=== PATIENT | male | born 1990 | race Caucasian/White ===

== ENCOUNTER 2017-05-04 10:22 | Emergency (ER) | payer BC, OTHER ==
[~2017-05-04] VITALS: Ht 172.7 cm; Wt 113.7 kg
[~2017-05-04 10:22] MED LIST: LPT20 PO; PROP40TA5 PO; SUMA25TA12 PO
[2017-05-04 10:27] VITALS: TEMP 36.9; Ht 172.7 cm; Wt 113.7 kg
[2017-05-04] MEDS ORDERED: SODIUM CHLORIDE 0.9% 1000ML 1,000 ML IV STA (10:47)
--- NOTE | 2017-05-04 10:50 | EMERGENCY ROOM VISIT NOTE ---
History Report prepared by Bruce: Ramya Hill Under the Supervision of: Dr. Marco Hopson M.D. First contact with patient: 10:37 Chief Complaint: ABDOMINAL PAIN Stated Complaint: LOWER RIGHT ABDOMINAL PAIN,BACK PAIN Nursing Triage Summary: Pt reports RLQ pain around to back for 3 days, nausea. Hx of acute kidney failure a couple days ago. Denies urinary sx other than urine looks "slightly dark". States pain is worse with walking or bending over. History of Present Illness The patient is a 26 year old male who presents to the Emergency Room with complaints of persistent RLQ abdominal pain for the past 3 days. He rates his pain as a 7/10 in severity and notes it radiates into his back. Movement and walking worsen his discomfort. He has been nauseous but has not vomited. He denies any dysuria, hematuria or testicular pain. The patient has a history of acute renal failure and states his urine did look "slightly dark" today. He was able to eat breakfast this morning, stating he had eggs, but eating did not exacerbate his symptoms. The patient still has both his appendix and gallbladder. He has a minor cough but denies any recent fevers. 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 A total of ten systems were reviewed and were otherwise negative. Past Medical & Surgical Medical Problems: (1) Acute febrile illness (2) ARF (acute renal failure) (3) Headache (4) Migraines (5) Sore throat Family History Diabetes mellitus FATHER Heart disease FATHER Hypertension Social History Smoking Status: Never Smoker Alcohol Use: none Drug Use: none Marital Status: Housing Status: lives with family Occupation Status: employed Current/Historical Medications Scheduled Atorvastatin (Lipitor), 20 MG PO DAILY Propranolol Hcl (Propranolol Hcl), 40 MG PO BID Scheduled PRN Sumatriptan Succinate (Imitrex), 25 MG PO DIRECTED PRN for Headache Allergies Coded Allergies: NSAIDs (Verified Adverse Reaction, Intermediate, HISTORY OF RENAL FAILURE , 05/04/17) Physical Exam Vital Signs Date Time Temp Pulse Resp B/P (MAP) Pulse Ox O2 Delivery O2 Flow Rate FiO2 05/04/17 12:55 89 18 133/79 97 05/04/17 12:13 95 16 148/79 96 Room Air 05/04/17 11:14 86 05/04/17 10:27 36.9 72 17 155/101 96 Room Air Physical Exam GENERAL: Awake, alert, well-appearing, in no distress HENT: Normocephalic, atraumatic. Oropharynx unremarkable. Dry mucous membranes. EYES: Normal conjunctiva. Sclera non-icteric. NECK: Supple. No nuchal rigidity. FROM. No JVD. RESPIRATORY: Clear to auscultation. CARDIAC: Regular rate, normal rhythm. Extremities warm and well perfused. Pulses equal. ABDOMEN: Soft, mild RLQ tenderness over McBurney's point, no peritoneal signs, negative Guy's sign, negative psoas, negative Rovsing's sign. No rebound or guarding. No masses. RECTAL: Deferred. MUSCULOSKELETAL: Chest examination reveals no tenderness. The back is symmetrical on inspection without obvious abnormality. There is no CVA tenderness to palpation. No joint edema. LOWER EXTREMITIES: Calves are equal size bilaterally and non-tender. No edema. No discoloration. NEURO: Normal sensorium. No sensory or motor deficits noted. SKIN: No rash or jaundice noted. Medical Decision & Procedures ER Provider Diagnostic Interpretation: Radiology results as stated below per my review and radiologist interpretation: CT OF THE ABDOMEN AND PELVIS WITH CONTRAST CLINICAL HISTORY: Right lower quadrant abdominal pain. COMPARISON STUDY: CT of the abdomen and pelvis May 12, 2015 and renal ultrasound May 14, 2015. TECHNIQUE: Following IV administration of 93 mL of Optiray-320, axial images of the abdomen and pelvis were obtained from the lung bases to the proximal femurs. Images were reviewed in the axial, sagittal, and coronal planes. IV contrast was administered without complication. A dose lowering technique was utilized adhering to the principles of ALARA. CT DOSE: 1118.54 mGy.cm FINDINGS: A 1.4 cm cyst within the upper pole the right kidney is noted. There is fatty infiltration of the liver. The spleen, adrenal glands, left kidney and pancreas are normal. There is no hydronephrosis or hydroureter. Caliber and wall thickness of small and large bowel are normal. The appendix is normal. No abdominal or pelvic lymphadenopathy is present. Note is made of a 2.4 cm tubular fat attenuation structure located along anterior aspect of the mid descending colon. There is minimal adjacent infiltration. There is no abscess. There is no free air. No suspicious osseous lesions are present. No peripancreatic or pericholecystic infiltration is present. IMPRESSION: 1. Normal appendix. 2. Findings consistent with epiploic appendagitis of the ascending colon. 3. No bowel obstruction. 4. Fatty liver. Electronically signed by: Guillermo Wilder M.D. 05/04/2017 12:21 PM Laboratory Results 05/04/17 10:40 Red Blood Count 5.32, Mean Corpuscular Volume 92.3, Mean Corpuscular Hemoglobin 31.8, Mean Corpuscular Hemoglobin Concent 34.4, Mean Platelet Volume 10.6, Neutrophils (%) (Auto) 67.2, Lymphocytes (%) (Auto) 24.8, Monocytes (%) (Auto) 6.5, Eosinophils (%) (Auto) 1.1, Basophils (%) (Auto) 0.3, Neutrophils # (Auto) 6.58, Lymphocytes # (Auto) 2.43, Monocytes # (Auto) 0.64, Eosinophils # (Auto) 0.11, Basophils # (Auto) 0.03 05/04/17 10:40 Test 05/04/17 10:30 05/04/17 10:40 Urine Color YELLOW Urine Appearance CLEAR (CLEAR) Urine pH 6.5 (4.5-7.5) Urine Specific [place] 1.021 (1.000-1.030) Urine Protein NEG (NEG) Urine Glucose (UA) NEG (NEG) Urine Ketones NEG (NEG) Urine Occult Blood NEG (NEG) Urine Nitrite NEG (NEG) Urine Bilirubin NEG (NEG) Urine Urobilinogen NEG (NEG) Urine Leukocyte Esterase NEG (NEG) White Blood Count 9.80 K/uL (4.8-10.8) Red Blood Count 5.32 M/uL (4.7-6.1) Hemoglobin 16.9 g/dL (14.0-18.0) Hematocrit 49.1 % (42-52) Mean Corpuscular Volume 92.3 fL (80-100) Mean Corpuscular Hemoglobin 31.8 pg (25-34) Mean Corpuscular Hemoglobin Concent 34.4 g/dl (32-36) Platelet Count 313 K/uL (130-400) Mean Platelet Volume 10.6 fL (7.4-10.4) Neutrophils (%) (Auto) 67.2 % Lymphocytes (%) (Auto) 24.8 % Monocytes (%) (Auto) 6.5 % Eosinophils (%) (Auto) 1.1 % Basophils (%) (Auto) 0.3 % Neutrophils # (Auto) 6.58 K/uL (1.4-6.5) Lymphocytes # (Auto) 2.43 K/uL (1.2-3.4) Monocytes # (Auto) 0.64 K/uL (0.11-0.59) Eosinophils # (Auto) 0.11 K/uL (0-0.5) Basophils # (Auto) 0.03 K/uL (0-0.2) RDW Standard Deviation 43.3 fL (36.4-46.3) RDW Coefficient of Variation 12.8 % (11.5-14.5) Immature Granulocyte % (Auto) 0.1 % Immature Granulocyte # (Auto) 0.01 K/uL (0.00-0.02) Anion Gap 8.0 mmol/L (3-11) Est Creatinine Clear Calc Drug Dose 98.4 ml/min Estimated GFR () 80.6 Estimated GFR (Non- 69.6 BUN/Creatinine Ratio 15.4 (10-20) Calcium Level 9.7 mg/dl (8.5-10.1) Total Bilirubin 0.4 mg/dl (0.2-1) Direct Bilirubin 0.1 mg/dl (0-0.2) Aspartate Amino Transf (AST/SGOT) 31 U/L (15-37) Alanine Aminotransferase (ALT/SGPT) 72 U/L (12-78) Alkaline Phosphatase 107 U/L (45-117) Total Protein 8.6 gm/dl (6.4-8.2) Albumin 4.0 gm/dl (3.4-5.0) Lipase 253 U/L (73-393) Laboratory results reviewed by me Medications Administered Medications (Trade) Dose Ordered Sig/Ki Route Start Time Stop Time Status Last Admin Dose Admin Sodium Chloride 1,000 ml @ 999 mls/hr Q1H1M STAT IV 05/04/17 10:47 05/04/17 11:47 DC 05/04/17 11:00 999 MLS/HR ED Course 1045: The patient was evaluated in room B12. A complete history and physical exam was performed. 1315: I reevaluated the patient. He is feeling well and resting comfortably. I discussed his results and discharge instructions and he verbalized complete understanding and agreement. Medical Decision I reviewed the patient's past medical history, medications, and the nursing notes as described above. The patient's presentation and history were concerning for appendicitis, diverticulitis, PUD, biliary pathology, UTI, pancreatitis, obstruction, mesenteric ischemia, aortic pathology, infections, inflammatory bowel disease, renal colic, as well as others were entertained. The patient is a 26 yo gentleman who presents to the emergency department with RLQ pain x 3 days per HPI. On arrival the patient is relatively-well appearing in NAD, AFVSS. Mild ttp RLQ, no peritoneal signs. Labs unremarkable including WBC wnl. Cr. 1.[address] UA negative. CT abd/pel with normal appendix. Does have epiploic appendagitis of the ascending colon. Plan for NSAIDS and PCP f/u. Findings and plan for follow-up reviewed with patient. Patient agreeable and d/c'd per discharge instructions. Medication Reconcilliation Current Medication List: was personally reviewed by me Blood Pressure Screening Patient's blood pressure: Elevated blood pressure Blood pressure disposition: Elevated BP felt to be situational Impression Primary Impression: Right lower quadrant abdominal pain Additional Impression: Epiploic appendagitis Scribe Attestation The scribe's documentation has been prepared under my direction and personally reviewed by me in its entirety. I confirm that the note above accurately reflects all work, treatment, procedures, and medical decision making performed by me. Departure Information Dispostion Home / Self-Care Referrals Evgeny Wilkes DVeronicaO. (PCP) Patient Instructions ED Abdominal Pain Unkn Cause Male, [facility] Additional Instructions Please follow up with your primary care physician in the next 1-3 days for re- evaluation. The cause of your symptoms is unclear at this time. Otherwise, your exam, lab results, and CT scan did not show signs of an emergent condition at this time. Acetaminophen or ibuprofen for pain and fevers as needed. Drink plenty of fluids to ensure hydration. Return to the emergency department for worsening symptoms as described in the accompanying instructions. Problem Qualifiers
[2017-05-04 10:58] LABS: BASO % 0.3 %; BASO ABS # 0.03 K/uL (0-0.2); EOS % 1.1 %; EOS ABS # 0.11 K/uL (0-0.5); HEMATOCRIT 49.1 % (42-52); HEMOGLOBIN 16.9 g/dL (14.0-18.0); IG# 0.01 K/uL (0.00-0.02); LYMPH % 24.8 %; LYMPH ABS # 2.43 K/uL (1.2-3.4); MEAN CELL VOLUME 92.3 fL (80-100); MEAN CORPUSCULAR HEMOGLOBIN 31.8 pg (25-34); MEAN CORPUSCULAR HGB CONC 34.4 g/dl (32-36); MEAN PLATELET VOLUME 10.6 fL (7.4-10.4); MONO % 6.5 %; MONO ABS # 0.64 K/uL (0.11-0.59); NEUT % 67.2 %; NEUT ABS # 6.58 K/uL (1.4-6.5); PLATELET COUNT 313 K/uL (130-400); RED CELL DISTRIBUTION WIDTH CV 12.8 % (11.5-14.5); RED CELL DISTRIBUTION WIDTH SD 43.3 fL (36.4-46.3)
[2017-05-04 11:16] LABS: CALCIUM 9.7 mg/dl (8.5-10.1); CREATININE 1.38 mg/dl (0.60-1.40)
[2017-05-04 11:19] LABS: TOTAL PROTEIN 8.6 gm/dl (6.4-8.2)
[2017-05-04] MEDS ORDERED: OPTIRAY 320 IV PRN (11:45)
--- NOTE | 2017-05-04 12:22 | DIAGNOSTIC IMAGING REPORT ---
CT OF THE ABDOMEN AND PELVIS WITH CONTRAST CLINICAL HISTORY: Right lower quadrant abdominal pain. COMPARISON STUDY: CT of the abdomen and pelvis May 12, 2015 and renal ultrasound May 14, 2015. TECHNIQUE: Following IV administration of 93 mL of Optiray-320, axial images of the abdomen and pelvis were obtained from the lung bases to the proximal femurs. Images were reviewed in the axial, sagittal, and coronal planes. IV contrast was administered without complication. A dose lowering technique was utilized adhering to the principles of ALARA. CT DOSE: 1118.54 mGy.cm FINDINGS: A 1.4 cm cyst within the upper pole the right kidney is noted. There is fatty infiltration of the liver. The spleen, adrenal glands, left kidney and pancreas are normal. There is no hydronephrosis or hydroureter. Caliber and wall thickness of small and large bowel are normal. The appendix is normal. No abdominal or pelvic lymphadenopathy is present. Note is made of a 2.4 cm tubular fat attenuation structure located along anterior aspect of the mid descending colon. There is minimal adjacent infiltration. There is no abscess. There is no free air. No suspicious osseous lesions are present. No peripancreatic or pericholecystic infiltration is present. IMPRESSION: 1. Normal appendix. 2. Findings consistent with epiploic appendagitis of the ascending colon. 3. No bowel obstruction. 4. Fatty liver. Electronically signed by: Guillermo Wilder M.D. 05/04/2017 12:21 PM Dictated Date/Time: 05/04/2017 12:16 PM
[2017-05-04 12:55] VITALS: BP 133/79; PULSE 89; O2SAT 97
== END 2017-05-04 12:55 | disposition home or self-care (01) ==
LOC: C.EDB 10:24
DX: K63.89 Other specified diseases of intestine (principal); Q43.8 Other specified congenital malformations of intestine; Z83.3 Family history of diabetes mellitus; Z82.49 Family history of ischemic heart disease and other diseases of the circulatory system